=== PATIENT | female | born 1975 | race Caucasian/White ===

== ENCOUNTER 2017-07-09 17:05 | Emergency (ER) | payer BC ==
[2017-07-09 17:25] VITALS: BP 103/68; PULSE 98; RESP 18; TEMP 98.1; O2SAT 99; BMI 29.2
[2017-07-09] MEDS ORDERED: Sodium Chloride 0.9% 1,000 ML IV STA (18:06)
--- NOTE | 2017-07-09 18:12 | ED PDOC ---
Arrival/HPI - General Chief Complaint: Back Pain Time Seen by Provider: 07/09/17 17:22 Historian: Patient, Spouse - History of Present Illness Narrative History of Present Illness (Text): 07/09/17 18:05 This 41 yo female with pmh hypothyroidism, and chronic back pain, presents to this ED c/o right flank pain x 7 days. Patient stated pain is intermittent, radiates fro right flank area to her right groin. Patient also noted urinary urgency since this morning. Patient denies hayes, sob, fever, cp, hematuria, vaginal bleeding, vaginal discharge, dyspareunia, skin rash, back pain, weakness , paresthesias, GI/ incontinence, saddle anesthesia, urinary retention, STD exposure, or abnormal gait. Time/Duration: Other (see hpi) Quality: Aching, Stabbing Context: Home Past Medical History - Provider Review Nursing Documentation Reviewed: Yes - Tetanus Immunization Tetanus Immunization: Unknown - Endocrine/Metabolic Hx Hypothyroidism: Yes - Psychiatric Hx Depression: No Hx Emotional Abuse: No Hx Physical Abuse: No Hx Substance Use: No - Suicidal Assessment Feels Threatened In Home Enviroment: No Family/Social History - Physician Review Nursing Documentation Reviewed: Yes Family/Social History: Other (noncontributry) Smoking Status: Current Some Days Smoker Hx Alcohol Use: Yes Frequency of alcohol use: Socially Hx Substance Use: No Hx Substance Use Treatment: No Allergies/Home Meds Allergies/Adverse Reactions: Allergies No Known Allergies Allergy (Verified 07/09/17 17:25) Home Medications: Home Meds Medication Instructions Recorded Confirmed Levothyroxine Sodium 0.05 mg PO DAILY 11/22/12 07/09/17 [Levothyroxine] Review of Systems - Review of Systems Constitutional: Normal. absent: Fatigue, Weight Change, Fevers Eyes: Normal ENT: Normal Respiratory: Normal Cardiovascular: Normal Gastrointestinal: Other (right flank pain) Genitourinary Female: Normal Musculoskeletal: Normal Skin: Normal Neurological: Normal Endocrine: Normal Hemo/Lymphatic: Normal Psychiatric: Normal Physical Exam Vital Signs Temp Pulse Resp BP Pulse Ox 07/09/17 17:20 98.1 F 98 H 18 103/68 99 Temperature: Afebrile Blood Pressure: Normal Pulse: Regular Respiratory Rate: Normal Appearance: Positive for: Well-Appearing, Non-Toxic, Comfortable Pain Distress: None Mental Status: Positive for: Alert and Oriented X 3 - Systems Exam Head: Present: Atraumatic, Normocephalic Pupils: Present: PERRL Extroacular Muscles: Present: EOMI Conjunctiva: Present: Normal Mouth: Present: Moist Mucous Membranes Neck: Present: Normal Range of Motion Respiratory/Chest: Present: Clear to Auscultation, Good Air Exchange. No: Respiratory Distress, Accessory Muscle Use Cardiovascular: Present: Regular Rate and Rhythm, Normal S1, S2. No: Murmurs Abdomen: Present: Normal Bowel Sounds. No: Tenderness, Distention, Peritoneal Signs, Rebound, Guarding Back: Present: Normal Inspection. No: CVA Tenderness Upper Extremity: Present: Normal Inspection, Normal ROM. No: Cyanosis, Edema Lower Extremity: Present: Normal Inspection, Normal ROM. No: Edema Neurological: Present: GCS=15, CN II-XII Intact, Speech Normal, Motor Func Grossly Intact, Normal Sensory Function, Normal Cerebellar Funct, Gait Normal, Memory Normal Skin: Present: Warm, Dry, Normal Color. No: Rashes Psychiatric: Present: Alert, Oriented x 3, Normal Insight, Normal Concentration Medical Decision Making ED Course and Treatment: 07/09/17 20:23 Patient stated she continues with pain. She stated she take Percocet for her back pain at home. She stated Percocet with Tramadol are the only medication that works for her pain. 07/09/17 21:40 Re-evaluation. Patient feels better. Discussed results and plan with patient who expresses understanding. All questions answered and there is agreement with the plan to discharge home with instructions. Patient stable for discharge. Return if symptoms persist or worsen. Patient requested narcotic pain medication for her chronic back pain. I told patient that this hospital does not manage chronic pain. She was recommended to see pain management doctor. She stated she will ask her pmd to get a referral. Patient appears to have a drug seeking behavior, requesting more Percocets Re-evaluation Time: 21:40 Reassessment Condition: Re-examined, Improved - Lab Interpretations Microbiology Results: Microbiology Results 07/09/17 18:10 Urine Urine Culture - Preliminary Gram Negative [facility] Lab Results: 07/09/17 18:13 07/09/17 18:13 Lab Results 07/09/17 18:13: Sodium 139, Potassium 4.1, Chloride 104, Carbon Dioxide 24, Anion Gap 15, BUN 11, Creatinine 0.7, Est GFR ( Amer) > 60, Est GFR (Non- Af Amer) > 60, Random Glucose 89, Calcium 9.6, Total Bilirubin 0.4, AST 26, ALT 28, Alkaline Phosphatase 75, Total Protein 8.0, Albumin 4.5, Globulin 3.4, Albumin/Globulin Ratio 1.3 07/09/17 18:13: WBC 10.8, RBC 4.55, Hgb 9.3 L, Hct 30.6 L, MCV 67.3 L, MCH 20.4 L, MCHC 30.4 L, RDW 18.2 H, Plt Count 376, MPV 10.7, Gran % 70.0 H, Lymph % ( Auto) 21.4 L, [place] % (Auto) 6.6 H, Eos % (Auto) 1.5, Baso % (Auto) 0.5, Gran # 7.55 H, Lymph # 2.3, [place] # 0.7 H, Eos # 0.2, Baso # 0.05 07/09/17 18:10: Urine Color Yellow, Urine Appearance Cloudy, Urine pH 6.0, Ur Specific [place] >= 1.030, Urine Protein Trace H, Urine Glucose (UA) Negative, Urine Ketones Trace H, Urine Blood Negative, Urine Nitrate Negative, Urine Bilirubin Negative, Urine Urobilinogen 0.2, Ur Leukocyte Esterase Trace H, Urine RBC 2 - 5, Urine WBC 20 - 25, Ur Epithelial Cells 10 - 12, Urine Bacteria Many, Urine HCG, Qual Negative 07/09/17 18:00: Lipase 157 I have reviewed the lab results: Yes Interpretation: No clinic. lab abnormalty - RAD Interpretation Narrative RAD Interpretations (Text): 07/09/17 21:41 Formerly [facility] of Radiology [address] [address] Tel. no. Patient Name: CLIFFORD BRAVO Pt. Address: [address] [place] [address] 3 Med. Rec #: [id number] [place] [address]: Bladimir Clayton PA-C Pt Order Location: ED : 1975 Female Age: 41 Order #: [id number] Reason for exam: right flank pain CT Scan ABD PELVIS W/O PO OR IV CONT Exam Date: 07/09/17 This imaging exam was performed at [facility] EXAM: CT Abdomen and Pelvis Without Intravenous Contrast EXAM DATE/TIME: 07/09/2017 6:06 PM CLINICAL HISTORY: 41 years old, female; Pain; Abdominal pain; Acute; Additional info: Right flank pain TECHNIQUE: Axial computed tomography images of the abdomen and pelvis without intravenous contrast. All CT scans at this facility use one or more dose reduction techniques, viz.: automated exposure control; ma/kV adjustment per patient size (including targeted exams where dose is matched to indication; i.e. head); or iterative reconstruction technique. Coronal and sagittal reformatted images were created and reviewed. COMPARISON: There are no prior studies for comparison. FINDINGS: Lower thorax: Heart size is normal. There is a small hiatal hernia. Lung bases are clear ABDOMEN: Liver: unremarkable Gallbladder and bile ducts: Gallbladder is partially distended. There is a small stone.Common duct is unremarkable. Pancreas: unremarkable Spleen: unremarkable Adrenals: unremarkable Kidneys and ureters: Kidneys and ureters are unremarkable. There are no renal or ureteral stones. Stomach and bowel: There are postsurgical changes of gastric sleeve.Bowel rotation is normal. Small bowel is mildly distended with fluid and air. There are scattered air-fluid levels in the left upper quadrant. There is fluid and air throughout the small bowel. There is no obstruction. Ileocecal region is unremarkable. Appendix and terminal ileum are unremarkable. There is moderate stool in the right colon. Left colon is incompletely distended which limits evaluation. There is scattered diverticulosis. Appendix: See stomach and bowel PELVIS: Bladder: unremarkable Reproductive: Uterus and adnexal structures are unremarkable. ABDOMEN and PELVIS: Intraperitoneal space: There is no free air or free fluid. Bones/joints: There are no acute osseous abnormalities. There is early degenerative change. There is L5-S1 disc space narrowing and disc bulging. Soft tissues: There is a small umbilical hernia. Vasculature: There are multiple phleboliths. Vascular structures are unremarkable. Lymph nodes: There is no pathologic adenopathy. IMPRESSION: No renal or ureteral stones or hydronephrosis; small gallstone, no ductal dilatation; prior gastric sleeve; no CT findings of appendicitis or diverticulitis Additional nonemergent findings as described above. Dictated By: Makayla Parish MD, MD Dictated Date/Time: 07/09/172027 Signed By: Makayla Parish MD Date Signed: 2027 Transcribed By: OPAL Transcribe Date/Time : 07/09/172027 DORI/JOESPH Radiology Orders: 07/09/17 18:06 ABD & PELVIS W/O PO OR IV CONT [CT] Stat - Medication Orders Current Medication Orders: Discontinued Medications Cephalexin Monohydrate (Keflex) 500 mg PO STAT STA PRN Reason: Protocol Stop: 07/09/17 21:41 Sodium Chloride (Sodium Chloride 0.9%) 1,000 mls @ 999 mls/hr IV .Q1H1M STA Stop: 07/09/17 19:06 Last Admin: 07/09/17 18:21 Dose: 999 mls/hr eMAR Start Stop Document 07/09/17 18:21 SE (Rec: 07/09/17 18:21 [id number] Intravenous Solution Start Date 07/09/17 Start Time 18:21 Ketorolac Tromethamine (Toradol) 15 mg IVP STAT STA Stop: 07/09/17 18:08 Last Admin: 07/09/17 18:21 Dose: 15 mg MAR Pain Assessment Document 07/09/17 18:21 SE (Rec: 07/09/17 18:21 [id number]) Pain Reassessment Is this a pain reassessment? No Sleep Is patient sleeping during reassessment? No Presence of Pain Presence of Pain Yes Pain Scale Used Pain Scale Used Numeric Location Left, Right or Bilateral Right Pain Location Body Site Abdomen Back IVP Administration Document 07/09/17 18:21 SE (Rec: 07/09/17 18:21 [id number]) Charges for Administration # of IVP Administrations 1 Oxycodone/Acetaminophen (Percocet 5/325 Mg Tab) 1 tab PO STAT STA Stop: 07/09/17 20:23 Last Admin: 07/09/17 20:40 Dose: 1 tab MAR Pain Assessment Document 07/09/17 20:40 SE (Rec: 07/09/17 20:40 [id number]) Pain Reassessment Is this a pain reassessment? No Sleep Is patient sleeping during reassessment? No Presence of Pain Presence of Pain Yes Pain Scale Used Pain Scale Used Numeric Phenazopyridine HCl (Pyridium) 200 mg PO STAT STA Stop: 07/09/17 19:16 Last Admin: 07/09/17 19:52 Dose: 200 mg Disposition/Present on Arrival - Present on Arrival Any Indicators Present on Arrival: No History of DVT/PE: No History of Uncontrolled Diabetes: No Urinary Catheter: No History of Decub. Ulcer: No History Surgical Site Infection Following: None - Disposition Have Diagnosis and Disposition been Completed?: Yes Diagnosis: Nonspecific abdominal pain, Urinary tract infection Disposition: HOME/ ROUTINE Disposition Time: 21:42 Patient Plan: Discharge Condition: IMPROVED Discharge Instructions (ExitCare): Urinary Tract Infection in Women (ED), Abdominal Pain (ED), Chronic Back Pain (ED) Additional Instructions: Call private doctor for follow up visit in 1-2 days. Take medication as instructed. Ask you doctor to refer you for pain management for you chronic back pain. return to emergency if symptoms worsen. Prescriptions: Cephalexin Susp [Keflex] 500 mg PO BID #100 ml Phenazopyridine HCl [Pyridium] 100 mg PO TID #9 tablet Referrals: Dina José, [Primary Care Provider] - Follow up with primary [facility] [Outside] - Follow up with primary [facility] [Outside] - Follow up with primary Forms: [employer] (Irish), WORK NOTE
[2017-07-09 18:25] LABS: URINE BILIRUBIN NEGATIVE (NEGATIVE); URINE BLOOD NEGATIVE (NEGATIVE); URINE GLUCOSE (UA) NEGATIVE (NEGATIVE); URINE LEUKOCYTE ESTERASE TRACE Leu/uL (NEGATIVE); URINE NITRATE NEGATIVE (NEGATIVE); URINE PROTEIN TRACE mg/dL (<30 mg/dL); URINE UROBILINOGEN 0.2 E.U./dL (<1 E.U./dL)
[2017-07-09 18:30] LABS: URINE APPEARANCE CLOUDY (CLEAR); URINE COLOR YELLOW (YELLOW)
[2017-07-09 18:31] LABS: HEMOGLOBIN 9.3 g/dL (12.0-16.0); RBC 4.55 10^6/uL (3.5-6.1); WHITE BLOOD COUNT 10.8 10^3/ul (4.5-11.0)
[2017-07-09 18:31] LABS: HCG,QUALITATIVE URINE NEGATIVE (NEGATIVE)
[2017-07-09 18:32] LABS: MEAN CELL VOLUME 67.3 fl (80.0-105.0); MEAN CORPUSCULAR HEMOGLOBIN 20.4 pg (25.0-35.0); MEAN CORPUSCULAR HGB CONC 30.4 g/dl (31.0-37.0); RED CELL DISTRIBUTION WIDTH 18.2 % (11.5-14.5)
[2017-07-09 18:33] LABS: BASO # 0.05 K/mm3 (0.0-2.0); BASO % 0.5 % (0.0-3.0); EOS # 0.2 (0.0-0.7); EOS % 1.5 % (1.5-5.0); GRAN # 7.55 (1.4-6.5); LYMPH # 2.3 (1.2-3.4); LYMPH % 21.4 % (22.0-35.0); MEAN PLATELET VOLUME 10.7 fl (7.0-11.0); MONO # 0.7 (0.1-0.6); MONO % 6.6 % (1.0-6.0)
[2017-07-09 19:10] LABS: ALB/GLOB RATIO 1.3 (1.1-1.8); ALBUMIN 4.5 g/dL (3.0-4.8); ALT/SGPT 28 U/L (7-56); AST/SGOT 26 U/L (14-36); BLOOD UREA NITROGEN 11 mg/dL (7-21); CALCIUM 9.6 mg/dL (8.4-10.5); GFR AFRICAN-AMERICAN > 60; GFR NON-AFRICAN AMERICAN > 60
[2017-07-09 19:11] LABS: URINE WBC 20 - 25 /hpf (0-6)
[2017-07-09 19:12] LABS: URINE BACTERIA MANY (NEG)
[2017-07-09] MEDS ORDERED: Oxycodone/Acetaminophen 5/325 mg Tab PO STA (20:22)
--- NOTE | 2017-07-09 20:28 | CT ---
EXAM: CT Abdomen and Pelvis Without Intravenous Contrast EXAM DATE/TIME: 07/09/2017 6:06 PM CLINICAL HISTORY: 41 years old, female; Pain; Abdominal pain; Acute; Additional info: Right flank pain TECHNIQUE: Axial computed tomography images of the abdomen and pelvis without intravenous contrast. All CT scans at this facility use one or more dose reduction techniques, viz.: automated exposure control; ma/kV adjustment per patient size (including targeted exams where dose is matched to indication; i.e. head); or iterative reconstruction technique. Coronal and sagittal reformatted images were created and reviewed. COMPARISON: There are no prior studies for comparison. FINDINGS: Lower thorax: Heart size is normal. There is a small hiatal hernia. Lung bases are clear ABDOMEN: Liver: unremarkable Gallbladder and bile ducts: Gallbladder is partially distended. There is a small stone.Common duct is unremarkable. Pancreas: unremarkable Spleen: unremarkable Adrenals: unremarkable Kidneys and ureters: Kidneys and ureters are unremarkable. There are no renal or ureteral stones. Stomach and bowel: There are postsurgical changes of gastric sleeve.Bowel rotation is normal. Small bowel is mildly distended with fluid and air. There are scattered air-fluid levels in the left upper quadrant. There is fluid and air throughout the small bowel. There is no obstruction. Ileocecal region is unremarkable. Appendix and terminal ileum are unremarkable. There is moderate stool in the right colon. Left colon is incompletely distended which limits evaluation. There is scattered diverticulosis. Appendix: See stomach and bowel PELVIS: Bladder: unremarkable Reproductive: Uterus and adnexal structures are unremarkable. ABDOMEN and PELVIS: Intraperitoneal space: There is no free air or free fluid. Bones/joints: There are no acute osseous abnormalities. There is early degenerative change. There is L5-S1 disc space narrowing and disc bulging. Soft tissues: There is a small umbilical hernia. Vasculature: There are multiple phleboliths. Vascular structures are unremarkable. Lymph nodes: There is no pathologic adenopathy. IMPRESSION: No renal or ureteral stones or hydronephrosis; small gallstone, no ductal dilatation; prior gastric sleeve; no CT findings of appendicitis or diverticulitis Additional nonemergent findings as described above.
== END 2017-07-09 22:00 | disposition home or self-care (01) ==
LOC: ED 17:05
DX: N39.0 Urinary tract infection, site not specified (principal); R10.9 Unspecified abdominal pain
CPT/HCPCS: 74176; 80053; 81001; 81025; 83690; 84703; 85025; 87086; 87181; 96374; 99284; J1885; J7040

== ENCOUNTER 2018-04-26 15:32 | Emergency (ER) | payer BC ==
[2018-04-26 15:32] VITALS: BMI 29.2
[2018-04-26 15:52] VITALS: RESP 18; TEMP 98.2; O2SAT 99
[2018-04-26] MEDS ORDERED: Oxycodone/Acetaminophen 5/325 mg Tab PO STA (16:42)
[2018-04-26] MEDS ORDERED: Lidocaine 5% Patch TD ONE (16:43)
--- NOTE | 2018-04-26 16:51 | ED PDOC ---
Arrival/HPI - General Chief Complaint: Pain, Chronic Time Seen by Provider: 04/26/18 16:12 Historian: Patient - History of Present Illness Narrative History of Present Illness (Text): 42 y/o F w/ h/o chronic back pain presenting to the ED for worsening back pain. The patient states she had been unable to get adequate alleviation of pain from her usual pain medications. Patient states she usually receives a prescription for oxycodone from her PCP who advised her to follow up with a pain management physician. The patient states she had been attempting to set up an appointment, but had been unable to due to insurance issues. The patient requests some pain medications to allow her to manage until she is able to touch base with pain management. Time/Duration: Prior to Arrival Symptom Course: Unchanged Severity Level: Moderate Activities at Onset: Rest Context: Home Past Medical History - Provider Review Nursing Documentation Reviewed: Yes - Travel History Have you recently traveled outside [place] w/in the past 3 mons?: No - Tetanus Immunization Tetanus Immunization: Unknown - Endocrine/Metabolic Hx Hypothyroidism: Yes - Musculoskeletal/Rheumatological Hx Back Pain: Yes - Psychiatric Hx Depression: No Hx Emotional Abuse: No Hx Physical Abuse: No Hx Substance Use: No - Anesthesia Hx Anesthesia: No Hx Anesthesia Reactions: No Hx Malignant Hyperthermia: No - Suicidal Assessment Feels Threatened In Home Enviroment: No Family/Social History - Physician Review Nursing Documentation Reviewed: Yes Family/Social History: No Known Family HX Smoking Status: Current Some Days Smoker Hx Alcohol Use: Yes Hx Substance Use: No Hx Substance Use Treatment: No Allergies/Home Meds Allergies/Adverse Reactions: Allergies No Known Allergies Allergy (Verified 07/09/17 17:25) Home Medications: Home Meds Medication Instructions Recorded Confirmed Levothyroxine Sodium 0.05 mg PO DAILY 11/22/12 07/09/17 [Levothyroxine] Review of Systems - Physician Review All systems were reviewed & negative as marked: Yes - Review of Systems Musculoskeletal: Back Pain, Myalgias. absent: Neck Pain Physical Exam Vital Signs Reviewed: Yes Vital Signs Temp Pulse Resp BP Pulse Ox 04/26/18 15:50 98.2 F 78 18 111/70 99 Temperature: Afebrile Blood Pressure: Normal Respiratory Rate: Normal Appearance: Positive for: Well-Appearing, Non-Toxic, Comfortable Mental Status: Positive for: Alert and Oriented X 3 - Systems Exam Head: Present: Atraumatic, Normocephalic Pupils: Present: PERRL Extroacular Muscles: Present: EOMI Conjunctiva: Present: Normal Mouth: Present: Moist Mucous Membranes Neck: Present: Normal Range of Motion Respiratory/Chest: Present: Clear to Auscultation, Good Air Exchange. No: Respiratory Distress Cardiovascular: Present: Regular Rate and Rhythm, Normal S1, S2. No: Murmurs Abdomen: Present: Normal Bowel Sounds. No: Tenderness, Distention, Peritoneal Signs Back: Present: Paraspinal Tenderness. No: CVA Tenderness, Midline Tenderness Upper Extremity: Present: Normal Inspection. No: Cyanosis, Edema Lower Extremity: Present: Normal Inspection, Capillary Refill < 2 s. No: Edema Neurological: Present: GCS=15, CN II-XII Intact, Speech Normal Skin: Present: Warm, Dry, Normal Color. No: Rashes Psychiatric: Present: Alert, Oriented x 3, Normal Insight, Normal Concentration Medical Decision Making ED Course and Treatment: Impression 42 y/o F w/ h/o chronic back pain presenting with back pain. Given the patient describes no symptoms of worsening back pain different in comparison to her baseline, she will not have imaging performed at this time Plan --Lidoderm Patch --Percocet --Reassess & disposition Progress Notes Discussion with patient for appropriate follow up in regards to pain medication. She demonstrates understanding will follow up with her PCP and pain management. Scripts provided. She is stable for discharge. Disposition/Present on Arrival - Present on Arrival Any Indicators Present on Arrival: No History of DVT/PE: No History of Uncontrolled Diabetes: No Urinary Catheter: No History of Decub. Ulcer: No History Surgical Site Infection Following: None - Disposition Have Diagnosis and Disposition been Completed?: Yes Diagnosis: Lower back pain Disposition: HOME/ ROUTINE Disposition Time: 17:44 Patient Plan: Discharge Condition: STABLE Discharge Instructions (ExitCare): Low Back Pain (DC) Additional Instructions: All medical record entries made by the Scribe were at my direction and personally dictated by me. I have reviewed the chart and agree that the record accurately reflects my personal performance of the history, physical exam, medical decision making, and the department course for this patient. I have also personally directed, reviewed, and agree with the discharge instructions and disposition. Prescriptions: Lidocaine 5% [Lidoderm] 1 ea TD Q12 5 Days #5 patch RX: Naproxen 500 mg PO BID #10 tab Referrals: Adriano Pompa MD [Medical Doctor] - Follow up with primary Jessica Garnett MD [Medical Doctor] - Follow up with primary Forms: [employer] (Belgian)
[2018-04-26 18:13] VITALS: BP 115/71; PULSE 72
== END 2018-04-26 18:35 | disposition home or self-care (01) ==
LOC: ED 15:32
DX: M54.5 Low back pain (principal); E03.9 Hypothyroidism, unspecified